=== PATIENT | female | born 1970 | race African-American/Black ===

== ENCOUNTER 2025-03-31 10:12 | Emergency (ER) | payer MEDICARE, MEDICAID ==
[~2025-03-31] VITALS: Ht 160 cm; Wt 87.0 kg
--- NOTE | 2025-03-31 10:56 | ED.PDOC ---
Musculoskeletal HPI Comments 54F presents to the ER w/ prior MHx of Arthritis:Sx Hx of Neck Sx, Back Sx, Hysterectomy and the c/c of UE Pain. Pt reports on having had atraumatic left shoulder pain which radiates to the left chest/back. Pt notes that pain worsens w/ movement. Denies any symptoms at this time. Patient denies any SOB, dizziness, numbness, weakness, tingling, fever, chills, or recent fall. Chief Complaint: Upper Extremity Time Seen by MD: 10:55 Primary Care Provider: Reviewed Notes: Nurses Notes, Medications, Allergies Allergies: Coded Allergies: NO KNOWN ALLERGIES (Unverified , 10/24/11) Information Source: Patient Mode of Arrival: Ambulatory Location: Left Extremity Location: Shoulder Timing: Days Prehospital treatment: None Severity: Moderate Able to Move Extremity: Yes Bear Weight: Limited Pain: Moderate Hand Dominance: Right Mechanism: Spontaneous Circumstances: Spontaneous Onset of Symptoms: Spontaneous Symptoms: Pain DVT Risk Factors: NONE Associated signs and symptoms: Shoulder pain Past Medical History PAST MEDICAL HISTORY: Arthritis Surgical History: Hysterectomy Surgical History (Other): Back Pain, Neck Pain 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 Family History Family History: Reviewed,noncontributory to illness, Unknown Social History Smoker: Non-Smoker Alcohol: Denies ETOH Use Drugs: Denies Drug Use Lives In: Home Constitutional: denies: chills, diaphoresis, fatigue, fever, malaise, sweats, weakness, others EENTM: denies: blurred vision, double vision, ear bleeding, ear discharge, ear drainage, ear pain, ear ringing, eye pain, eye redness, hearing loss, mouth pain, mouth swelling, nasal discharge, nose bleeding, nose congestion, nose pain, photophobia, tearing, throat pain, throat swelling, voice changes, others Respiratory: denies: cough, hemoptysis, orthopnea, SOB at rest, shortness of breath, SOB with excertion, stridor, wheezing, others Cardiovascular: reports: chest pain; denies: dizzy spells, diaphoresis, Dyspnea on exertion, edema, irregular heart beat, left arm pain, lightheadedness, palpitations, PND, syncope, others Gastrointestinal: denies: abdomen distended, abdominal pain, blood streaked bowels, constipated, diarrhea, dysphagia, difficulty swallowing, hematemesis, melena, nausea, poor appetite, poor fluid intake, rectal bleeding, rectal pain, vomiting, others Genitourinary: denies: abnormal vagina bleeding, burning, dyspareunia, dysuria, flank pain, frequency, hematuria, incontinence, pain, , vagina discharge, urgency, others Neurological: denies: dizziness, fainting, headache, left sided numbness, left sided weakness, numbness, paresthesia, pre-existing deficit, right sided numbness, right sided weakness, seizure, speech problems, tingling, tremors, weakness, others Musculoskeletal: reports: back pain, others (left shoulder pain); denies: gout, joint pain, joint swelling, muscle pain, muscle stiffness, neck pain Integumetry: denies: bruises, change in color, change in hair/nails, dryness, laceration, lesions, lumps, rash, wounds, others Allergic/Immunocompromised: denies: Difficulty Healing, Frequent Infections, Hives, Itching, others Hematologic/Lymphatic: denies: anemia, blood clots, easy bleeding, easy bruising, swollen glands, others Endocrine: denies: excessive hunger, excessive sweating, excessive thirst, excessive urination, flushing, intolerance to cold, intolerance to heat, unexplained weight gain, unexplained weight loss, others Psychiatric: denies: anxiety, bipolar disorder, depression, hopeless, panic disorder, schizophrenia, sleepless, suicidal, others All Other Systems: Reviewed and Negative Physical Exam General Appearance: Moderate Distress, Obese HEENT: Normal ENT Inspection, PERRL/EOMI, Pharynx Normal, TMs Normal, Other (Facial palsy) Neck: Full Range of Motion, Non-Tender, Normal, Normal Inspection Respiratory: Chest Non-Tender, Lungs Clear, No Accessory Muscle Use, No Respiratory Distress, Normal Breath Sounds Cardiovascular: No Edema, No JVD, No Murmur, No Gallop, Normal Peripheral Pulses, Regular Rate/Rhythm Breast Exam: Deferred Gastrointestinal: No Organomegaly, Non Tender, No Pulsatile Mass, Normal Bowel Sounds, Soft Genitalia: Deferred Pelvic: Deferred Rectal: Deferred Extremities: Decreased range of motion, No calf tenderness, Normal capillary refill, Normal inspection, No pedal edema, Tender Musculoskeletal : Location: Left Extremity Location: Shoulder Apperance: Limited ROM, Tenderness: Moderate, Tenderness: Severe Neurologic: Alert, animal geneticist II-XII nml as Tested, No Motor Deficits, Normal Affect, Normal Mood, No Sensory Deficits Cerebellar Function: Normal Reflexes: Normal Skin: Dry, Normal Color, Warm Peripheral Pulses: 1+ carotid (R), 1+ carotid (L) Lymphatic: No Adenopathy Was a procedure done? Was a procedure done?: No EKG EKG : Pulse Rate (adult): 68 [place]: Normal Cardiac Rhythm: NSR Differential Diagnosis EXT Differential Diagnosis: Sprain, DJD, Strain, Bursitis X-Ray, Labs, Meds, VS Vital Signs Date Time Temp Pulse Resp B/P (MAP) Pulse Ox O2 Delivery O2 Flow Rate FiO2 03/31/25 12:07 97.8 69 16 152/96 (114) 97 97.8 03/31/25 11:02 68 03/31/25 10:14 98.3 80 15 164/104 99 98.3 Lab Test 03/31/25 11:29 03/31/25 10:29 Range/Units Troponin I High Sensitivity 3 L 3 L </=34 ng/L Current Medications Medications (Trade) Dose Ordered Sig/Félix Route Start Time Stop Time Status Last Admin Ketorolac Tromethamine (Toradol Injection) 60 mg ONCE ONCE IM 03/31/25 11:15 03/31/25 11:16 DC 03/31/25 11:41 X-Ray, Labs, Meds, VS Comment Course in the emergency department eventful patient came in complaining of severe left shoulder pain going to the chest and back spot on use for past five days blood pressure 164/104 EKG shows normal sinus rhythm at CT eight Troponin normal three and three EKG of the shoulder shows DJD and fusion in the neck Patient will be discharged home to follow up with the PCP and possibly or thopedist Time of 1ST Reevaluation: 11:25 Reevaluation 1ST: Unchanged Time of 2ND Reevaluation: 12:52 Reevaluation 2ND: Improved Consultation: PCP, Other (Orthopedist) Patient Education/Counseling: Diagnosis, Treatment, Prognosis, Need For Follow Up Family Education/Counseling: Diagnosis, Treatment, Prognosis, Need For Follow Up, Other (Has been at bedside) Departure 1 Departure Time of Disposition: 12:50 Impression: Primary Impression: DJD of left shoulder Qualified Codes: M19.012 - Primary osteoarthritis, left shoulder Disposition: 01 HOME / SELF CARE / HOMELESS Condition: Fair Additional Instructions: Local heat and follow up with your PCP in maybe an orthopedist e-Prescriptions Hydrocodone-Acetaminophen (Hydrocodone Bitartrate/AC 5-325 mg) 1 Tab Tab 1 TAB PO BID for 5 Days, #10 TAB Prov: JAYNE PEREZ MD 03/31/25 Prednisone (Prednisone) 20 Mg Tab 20 MG PO BID for 5 Days, #10 MG Prov: JAYNE PEREZ MD 03/31/25 Discharged With: Self, Spouse Critical Care Note Critical Care Time?: No Stability Stability form required: No Heart Score Heart Score: Heart Score Response (Comments) Value History Slightly Suspicious 0 EKG Normal 0 Age 45-64 1 Risk Factors No known risk factors 0 Troponin Normal limit 0 Total 1 I personally scribed for JAYNE PEREZ MD ([email or web address]) on 03/31/25 at 10:56. Electronically submitted by Anthony Norton ([email or web address]). JAYNE PEREZ MD Mar 31, 2025 10:56
[2025-03-31] MEDS: KETOROLAC TROMETH 60MG/2ML VIAL IM ONE (11:41)
--- NOTE | 2025-03-31 11:50 | DVH ---
Indication: Calcific bursitis Technique: XY L SHOULDER 2+ VIEW XRAYXY Comparison: None FINDINGS/IMPRESSION: No radiographic evidence for acute fracture or dislocation. No significant soft tissue edema. No radiopaque foreign body. [id number] degenerate changes of the left glenohumeral joint, left acromioclavicular joint. Cervical fusion hardware. Pulmonary vascular congestion. Left pulmonary basilar airspace opacities and small left pleural effusion.
[2025-03-31 12:07] VITALS: BP 152/96; PULSE 69; RESP 16; TEMP 97.8; O2SAT 97
[2025-03-31] MEDS ORDERED: PRED20TA2 PO (12:56)
[2025-03-31] MEDS ORDERED: HYDR-4902 PO (12:56)
--- NOTE | 2025-04-01 06:49 | ECG ---
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
== END 2025-03-31 13:09 | disposition home or self-care (01) ==
LOC: ER 10:12
DX: M19.012 Primary osteoarthritis, left shoulder (principal); Z79.899 Other long term (current) drug therapy
CPT/HCPCS: 36415; 73030; 84484; 93005; 96372; 99285; J1885

== ENCOUNTER 2025-04-25 07:20 | Emergency (ER) | payer MEDICARE, MEDICAID ==
[~2025-04-25] VITALS: Ht 165.1 cm; Wt 94.1 kg
[~2025-04-25 07:20] MED LIST: HYDR-4902 PO; PRED20TA2 PO
[2025-04-25] MEDS: HYDROcodone-ACET 5/325MG TAB PO ONE (08:14)
--- NOTE | 2025-04-25 08:27 | ED.PDOC ---
History of Present Illness HPI Comments 54-year-old female presents to the ER with the chief complaint of lower extremity pain. Reports on having had right knee pain for one week and has been worsening since, the pain is associated with swelling for which started last night. Patient notes on having no trauma to the area since the pain began. De nies any other symptoms at this time. Denies chills, fever, N/V/D, SOB, CP. No other associated symptoms, modifiers, recent injuries or sick contacts present at this time. Chief Complaint: Lower Extremity Time Seen by MD: 08:20 Primary Care Provider: Reviewed Notes: Nurses Notes, Medications, Allergies Allergies: Coded Allergies: NO KNOWN ALLERGIES (Unverified , 10/24/11) Home Meds Active Scripts Hydrocodone-Acetaminophen (Hydrocodone Bitartrate/AC 5-325 mg) 1 Tab Tab, 1 TAB PO BID for 5 Days, #10 TAB Prov:JAYNE PEREZ MD 03/31/25 Prednisone (Prednisone) 20 Mg Tab, 20 MG PO BID for 5 Days, #10 MG Prov:JAYNE PEREZ MD 03/31/25 Information Source: Patient Mode of Arrival: Ambulatory Severity: Moderate Timing: Days Duration: Since onset, Days Prehospital treatment: None Past Medical History PAST MEDICAL HISTORY: Arthritis Surgical History: Hysterectomy 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 Family History Family History: Reviewed,noncontributory to illness, Unknown Social History Smoker: Non-Smoker Alcohol: Denies ETOH Use Drugs: Denies Drug Use Lives In: Home Constitutional: denies: chills, diaphoresis, fatigue, fever, malaise, sweats, weakness, others EENTM: denies: blurred vision, double vision, ear bleeding, ear discharge, ear drainage, ear pain, ear ringing, eye pain, eye redness, hearing loss, mouth pain, mouth swelling, nasal discharge, nose bleeding, nose congestion, nose pain, photophobia, tearing, throat pain, throat swelling, voice changes, others Respiratory: denies: cough, hemoptysis, orthopnea, SOB at rest, shortness of breath, SOB with excertion, stridor, wheezing, others Cardiovascular: denies: chest pain, dizzy spells, diaphoresis, Dyspnea on exertion, edema, irregular heart beat, left arm pain, lightheadedness, palpitations, PND, syncope, others Gastrointestinal: denies: abdomen distended, abdominal pain, blood streaked bowels, constipated, diarrhea, dysphagia, difficulty swallowing, hematemesis, melena, nausea, poor appetite, poor fluid intake, rectal bleeding, rectal pain, vomiting, others Genitourinary: denies: abnormal vagina bleeding, burning, dyspareunia, dysuria, flank pain, frequency, hematuria, incontinence, pain, , vagina discharge, urgency, others Neurological: denies: dizziness, fainting, headache, left sided numbness, left sided weakness, numbness, paresthesia, pre-existing deficit, right sided numbness, right sided weakness, seizure, speech problems, tingling, tremors, weakness, others Musculoskeletal: reports: others (Right knee tenderness and mild swelling); denies: back pain, gout, joint pain, joint swelling, muscle pain, muscle stiffness, neck pain Integumetry: denies: bruises, change in color, change in hair/nails, dryness, l aceration, lesions, lumps, rash, wounds, others Allergic/Immunocompromised: denies: Difficulty Healing, Frequent Infections, Hives, Itching, others Hematologic/Lymphatic: denies: anemia, blood clots, easy bleeding, easy bruising, swollen glands, others Endocrine: denies: excessive hunger, excessive sweating, excessive thirst, excessive urination, flushing, intolerance to cold, intolerance to heat, unexplained weight gain, unexplained weight loss, others Psychiatric: denies: anxiety, bipolar disorder, depression, hopeless, panic disorder, schizophrenia, sleepless, suicidal, others All Other Systems: Reviewed and Negative Physical Exam Exam Comments right Knee is atraumatic with tenderness, neurovascularly sensation intact General Appearance: No Apparent Distress, Normal HEENT: Normal ENT Inspection, Pharynx Normal, TMs Normal Neck: Full Range of Motion, Non-Tender, Normal, Normal Inspection Respiratory: Chest Non-Tender, Lungs Clear, No Accessory Muscle Use, No Respiratory Distress, Normal Breath Sounds Cardiovascular: No Edema, No JVD, No Murmur, No Gallop, Normal Peripheral Pulses, Regular Rate/Rhythm Breast Exam: Deferred Gastrointestinal: No Organomegaly, Non Tender, No Pulsatile Mass, Normal Bowel Sounds, Soft Genitalia: Deferred Pelvic: Deferred Rectal: Deferred Extremities: No calf tenderness, Normal capillary refill, Normal inspection, Normal range of motion, Non-tender, No pedal edema Musculoskeletal : Apperance: Normal Neurologic: Alert, fruit or nut picker II-XII nml as Tested, No Motor Deficits, Normal Affect, Normal Mood, No Sensory Deficits Cerebellar Function: Normal Reflexes: Normal Skin: Dry, Normal Color, Warm Lymphatic: No Adenopathy Was a procedure done? Was a procedure done?: No Differential Dx Considerations may include: Knee sprain, knee fracture, X-Ray, Labs, Meds, VS Vital Signs Date Time Temp Pulse Resp B/P (MAP) Pulse Ox O2 Delivery O2 Flow Rate FiO2 04/25/25 08:29 99 18 100 Room Air 04/25/25 08:29 97.3 99 18 139/89 (106) 100 97.3 04/25/25 07:21 97.3 99 18 139/89 100 97.3 Current Medications Medications (Trade) Dose Ordered Sig/Félix Route Start Time Stop Time Status Last Admin Acetaminophen/ Hydrocodone Bitart ([place] 5/325MG Tab) 1 tab ONCE ONCE PO 04/25/25 08:00 04/25/25 08:01 DC 04/25/25 08:14 Time of 1ST Reevaluation: 08:50 Reevaluation 1ST: Unchanged Patient Education/Counseling: Diagnosis, Treatment, Prognosis Family Education/Counseling: No Family Present SEPSIS Sepsis Screen Date sepsis recognized/suspect: Apr 25, 2025 Time Sepsis recognized/suspect: 724 Recent Procedure: No On Antibiotic Therapy: No Respiratory Rate >20: No Heart Rate >90: No Temp<36 C (96.8 F) or >38.3 C: No SBP <90 or MAP <65 mmHG: No New Acute Mental Status Change: No Is the patient on CPAP, BIPAP,: No Physician Orders R Knee 3v Xray (04/25/25 07:59) Vital Signs Date Time Temp Pulse Resp B/P (MAP) Pulse Ox O2 Delivery O2 Flow Rate FiO2 04/25/25 08:29 99 18 100 Room Air 04/25/25 08:29 97.3 99 18 139/89 (106) 100 97.3 04/25/25 07:21 97.3 99 18 139/89 100 97.3 Medications Medications Dose Ordered Sig/Félix Route Start Time Stop Time Status Last Admin Dose Admin Acetaminophen/ Hydrocodone Bitart 1 tab ONCE ONCE PO 04/25/25 08:00 12/14/25 08:01 DC 04/25/25 08:14 Departure 1 Departure Time of Disposition: 09:06 (Patient likely with a right knee sprain. Patient does have a sesamoid bones her x-ray. Patient is able to ambulate bear weight so we will discharge patient home with orthopedic follow up) Impression: Primary Impression: Right knee sprain Disposition: HOME / SELF CARE / HOMELESS Condition: Stable Referrals: STEVE WRIGHT MD Additional Instructions: You likely sprained your knee. You can [place] wrap your knee for comfort. You can apply ice as needed for swelling. For pain you can take the followinam: Ibuprofen 400mg with food Noon: Acetaminophen 1000mg 4pm: Ibuprofen 400mg with food 8pm: Acetaminophen 1000mg If your symptoms worsen or you have any other concerns then please return to the ER.You can use crutches as needed. You should follow up with our orthopedic surgeon within 1 week to ensure your healing well. If your symptoms worsen, or you have any other concerns, then please return to the Emergency Room. Discharged With: Self Critical Care Note Critical Care Time?: No Stability Stability form required: No I personally scribed for KARLA GRAY MD ([email or web address]) on 04/25/25 at 08:27. Electronically submitted by Anthony Norton ([email or web address]). KARLA GRAY MD Apr 25, 2025 08:27
[2025-04-25 08:29] VITALS: BP 139/89; PULSE 99; RESP 18; TEMP 97.3; O2SAT 100
--- NOTE | 2025-04-25 08:42 | DVH ---
CLINICAL INFORMATION: Knee pain. TECHNIQUE: 3 views of the right knee were obtained. COMPARISON: XR KNEE COMPLETE LT on DOS: 09/17/23 FINDINGS: No acute fracture or dislocation. There are multiple ossicles posterior to the right knee joint, the most superiorly positioned of which appears to be the fabella. The other ossicles are suspected loose bodies, with the largest measuring up to 0.8 cm. Mild diffuse soft tissue swelling. Small joint effusion. IMPRESSION: 1. No evidence of acute bony abnormality. 2. Suspected loose bodies along the posterior aspect of the joint. Correlate with clinical findings. If clinically indicated, MRI could be obtained to further characterize.
== END 2025-04-25 09:49 | disposition home or self-care (01) ==
LOC: ER 07:20
DX: S83.91XA Sprain of unspecified site of right knee, initial encounter (principal); M19.90 Unspecified osteoarthritis, unspecified site; Z79.899 Other long term (current) drug therapy; Z90.710 Acquired absence of both cervix and uterus; Z79.891 Long term (current) use of opiate analgesic; Z79.52 Long term (current) use of systemic steroids; X58.XXXA Exposure to other specified factors, initial encounter; Y93.89 Activity, other specified; Y92.89 Other specified places as the place of occurrence of the external cause; Y99.8 Other external cause status
CPT/HCPCS: 73562